=== PATIENT | female | born 1945 | race Caucasian/White ===

== ENCOUNTER → 2017-07-09 | Outpatient (CLI) | payer OTHER | LOC: BMCIMAGING 10:13 | PROVIDERS: ATTEND Internal Medicine | DX: Z13.820 Encounter for screening for osteoporosis (principal); M85.80 Other specified disorders of bone density and structure, unspecified site ==

== ENCOUNTER → 2017-08-25 | Outpatient (CLI) | payer OTHER | LOC: CIMAGING 07:08 | PROVIDERS: ATTEND Internal Medicine | DX: R16.0 Hepatomegaly, not elsewhere classified (principal) | CPT/HCPCS: 76705-PO ==

== ENCOUNTER → 2017-09-01 | Outpatient (CLI) | payer OTHER ==
[~2017-09-01] MED LIST: IOPAMIDOL (ISOVUE-300) 100 ML BTL ONE
== END ==
LOC: CIMAGING 07:59
PROVIDERS: ATTEND Internal Medicine
DX: C78.7 Secondary malignant neoplasm of liver and intrahepatic bile duct (principal); N28.1 Cyst of kidney, acquired; K57.30 Diverticulosis of large intestine without perforation or abscess without bleeding
CPT/HCPCS: 74177; Q9967

== ENCOUNTER 2017-09-23 08:22 | Outpatient (CLI) | payer OTHER ==
[2017-09-23] MEDS ORDERED: MIDAZOLAM 2 MG/2 ML VIAL IVP PRN (08:33)
[2017-09-23] MEDS ORDERED: PROTAMINE SULFATE 50 MG/5 ML VIAL IVP PRN (08:33)
[2017-09-23] MEDS ORDERED: GLUCAGON HCL 1 MG VIAL IVP PRN (08:33)
[2017-09-23] MEDS ORDERED: HEPARIN 10,000 UNIT/10 ML MDV (1,000 UNIT/ML) IVP PRN (08:33)
[2017-09-23] MEDS ORDERED: NALOXONE HCL 0.4 MG/ML INJ IVP PRN (08:33)
[2017-09-23] MEDS ORDERED: ALTEPLASE 2 MG VIAL IVP PRN (08:33)
[2017-09-23] MEDS ORDERED: fentaNYL 100 MCG/2 ML INJ IVP PRN (08:33)
[2017-09-23] MEDS ORDERED: FLUMAZENIL 0.5 MG/5 ML MDV IVP PRN (08:33)
[2017-09-23] MEDS ORDERED: MEPERIDINE 25 MG/ML SYR IVP PRN (08:33)
[2017-09-23] MEDS ORDERED: NS 1,000 ML IV SCH (08:45)
[2017-09-23] MEDS ORDERED: LIDOCAINE 1% 300 MG/30 ML SDV ONE ×2 (08:49→09:01)
[2017-09-23 09:02] VITALS: PULSE 67
[2017-09-23 09:15] LABS: INR 1.03 (0.83-1.16); PROTIME(PATIENT) 13.7 SEC (12.0-15.0)
--- NOTE | 2017-09-23 09:48 | PDRADPRE ---
Radiology History & Physical Indication for procedure: liver disease, cancer Home medications: Bystolic 5 mg PO DAILY 09/19/17 [Last Taken 09/22/17 22:00] Lisinopril 40 mg PO DAILY 09/19/17 [Last Taken 09/22/17 22:00] Verapamil 120 mg PO DAILY 09/19/17 [Last Taken 09/22/17 22:00] Zocor 40 mg PO DAILY 09/19/17 [Last Taken 09/22/17 22:00] Allergies/Adverse Reactions: No Known Allergies Allergy (Unverified 09/23/17 09:02) Mental status: A&Ox3 Heart exam: regular rate and rhythm Lungs exam: clear to auscultation Mallampati Score: Class 2
--- NOTE | 2017-09-23 09:48 | PDPROPOC ---
Sedation Plan of Care Sedation Plan of Care: vital signs stable, mental status noted, patient educated of risks, benefits, alternatives, patient can tolerate sedation ASA Classification: ASA 2 Planned drugs: fentanyl Mallampati Score: Class 2 Mallampati Reference Image: Patient passed 3-3-2 rule?: Yes
--- NOTE | 2017-09-23 10:21 | PDRADPN ---
Radiology Procedure Note Date of Procedure: 09/23/17 Radiologist: Pérez De Anesthesiologist: Rosario Carvalho Anesthesia: IV Sedation Pre-op Diagnosis: Breast Cancer with liver mets Post-op Diagnosis: same Indication: Liver met histology Procedure: U/S liver met biopsy Finding(s): Multiple liver mets. Left lobe medial segment sampled Inf/Abcess present in the surg proc area at time of surgery?: No Depth: Organ Space (Left lobe liver medial segment) EBL: Minimal Specimen(s): 18 ga core biopsies x 4
[2017-09-23] MEDS ORDERED: oxyCODONE IR 5 MG TAB PO PRN (10:22)
[2017-09-23] MEDS ORDERED: ONDANSETRON 4 MG/2 ML VIAL IVP PRN (10:22)
[2017-09-23 13:40] VITALS: BP 122/72; O2SAT 85
[2017-09-23 14:22] VITALS: RESP 16
== END 2017-09-23 13:25 | disposition home or self-care (01) ==
LOC: FIMAGING 08:22
PROVIDERS: ATTEND Internal Medicine Hematology & Oncology
PROC: 0FB03ZX Excision of Liver, Percutaneous Approach, Diagnostic (ICD-10-PCS; principal; 2017-09-23 10:22)
DX: C78.7 Secondary malignant neoplasm of liver and intrahepatic bile duct (principal); C50.912 Malignant neoplasm of unspecified site of left female breast
CPT/HCPCS: 47000; 76942; 88307; 88341; 88342; 88360; 88361; 99152; 99153; J3010; J2310

== ENCOUNTER → 2018-01-09 | Outpatient (CLI) | payer OTHER ==
[~2018-01-09] MED LIST changes: +GADOBUTROL 10 ML VIAL IVP ONE; -IOPAMIDOL (ISOVUE-300) 100 ML BTL ONE
== END ==
LOC: FIMAGING 10:04
DX: Z12.89 Encounter for screening for malignant neoplasm of other sites (principal); C25.9 Malignant neoplasm of pancreas, unspecified
CPT/HCPCS: 74183; A9585

== ENCOUNTER → 2019-03-05 | Outpatient (CLI) | payer OTHER | LOC: FIMAGING 08:55 ==